=== PATIENT | male | born 1955 | race Caucasian/White ===

== ENCOUNTER → 2017-05-22 | Outpatient (CLI) | payer BC ==
[~2017-05-22] MED LIST: ASPI325T45 PO; ECHINACEA PO; GLUC1TAB22 PO; MISCCAP80 PO; MULT-506 PO; OXYM0.0592 NAE; PRAV40TA2 PO; PRLSR20 PO; VERA1TAB53 PO
--- NOTE | 2017-05-22 09:13 | DIAGNOSTIC IMAGING REPORT ---
L KNEE 4 OR MORE HISTORY: 61 years-old Male LEFT KNEE PAIN acute left knee pain without reported trauma. COMPARISON: Left knee radiographs 05/25/2016 TECHNIQUE: AP view of the bilateral knees with tunnel, sunrise and lateral views of the left knee FINDINGS: Mild medial compartment osteoarthritis is noted on the right. There is progressive degenerative changes of the left knee with mild to moderate joint space narrowing of the medial compartment. Mild patellofemoral osteoarthritis is also noted. There is a small joint effusion. Vascular calcifications are noted. No acute fracture, dislocation or intra-articular loose body identified. IMPRESSION: 1. Mild to moderate osteoarthritis of the medial compartment left knee with mild patellofemoral osteoarthritis. 2. No acute fracture or dislocation. 3. Small joint effusion. 4. Peripheral vascular disease. The above report was generated using voice recognition software. It may contain grammatical, syntax or spelling errors. Electronically signed by: Jose Nevarez M.D. 05/22/2017 9:12 AM Dictated Date/Time: 05/22/2017 9:10 AM
== END | disposition home or self-care (01) ==
LOC: C.RDSM 15:47
PROVIDERS: ATTEND Physician Assistant
DX: M25.562 Pain in left knee (principal)

== ENCOUNTER → 2017-06-15 | Outpatient (CLI) | payer BC ==
--- NOTE | 2017-06-15 14:25 | DIAGNOSTIC IMAGING REPORT ---
LEFT KNEE MRI HISTORY: Left knee pain. COMPARISON STUDY: Left knee 05/22/2017. TECHNIQUE: Multiplanar multisequence MRI of the left knee was performed according to standard department protocol without the use of contrast. FINDINGS: Menisci: Complex tear at the body of the medial meniscus with an oblique tear involving the posterior horn of the medial meniscus. The lateral meniscus appears intact. Ligaments: The anterior and posterior cruciate ligaments are intact. The medial and lateral collateral ligaments are normal in appearance. Extensor mechanism: The quadriceps tendon and patellar ligament are intact. Articular cartilage and bone: No fracture or dislocation. Small subchondral cystic foci within the medial compartment of the knee due to the degenerative change. Approximate 50% cartilage thinning seen within the central weightbearing portion of the medial femoral condyle and medial tibial plateau. Mild cartilage fraying seen within the patella. The lateral compartment appears intact. Joint effusion: Small. Soft tissues: Intact. IMPRESSION: 1. Medial meniscal tear as described above. 2. Moderate osteoarthritis within the medial compartment of the knee and mild osteoarthritis at the patellofemoral compartment. 3. Small joint effusion. Electronically signed by: Kenny Naranjo M.D. 06/15/2017 2:24 PM Dictated Date/Time: 06/15/2017 2:19 PM
== END | disposition home or self-care (01) ==
LOC: C.MRI 13:14
PROVIDERS: ATTEND Physician Assistant
DX: S83.242A Other tear of medial meniscus, current injury, left knee, initial encounter (principal); X58.XXXA Exposure to other specified factors, initial encounter; M17.12 Unilateral primary osteoarthritis, left knee

== ENCOUNTER 2017-11-07 12:30 | Emergency (ER) | payer OTHER ==
[~2017-11-07] VITALS: Ht 182.9 cm; Wt 101.2 kg
[~2017-11-07 12:30] MED LIST changes: -APIX1TAB3 PO; -PSYL48.59 PO; -TAMS0.4C38 PO
[2017-11-07 12:41] VITALS: TEMP 36.7; Ht 182.9 cm; Wt 101.2 kg
--- NOTE | 2017-11-07 13:08 | EMERGENCY ROOM VISIT NOTE ---
History Report prepared by Daisy: Nat Collins Under the Supervision of: Dr. Gage Villa D.O. First contact with patient: 12:52 Chief Complaint: OTHER COMPLAINT Stated Complaint: ULTRASOUND WANTS HIM SEEN, REPORT IS WITH ME History of Present Illness The patient is a 62 year old male who presents to the Emergency Room with complaints of intermittent left leg swelling for several months. He notes the swelling has gone down. The patient was being seen at his orthopedic group today for a torn meniscus in his left knee. They notified his PCP, who refused to see him and advised the patient to come to the ED for evaluation of a possible DVT. He states that the swelling goes down when he rests and is worsened when he walks around. He denies any chest pain or shortness of breath. He denies smoking, though occasionally drinks alcohol. He has a history of HLD, HTN, GERD. He takes a full strength Aspirin every day. Source of History: patient Onset: several months Position: leg (left) Quality: other (swelling) Timing: intermittent Modifying Factors (Worsening): other (walking) Modifying Factors (Relieving): rest Associated Symptoms: No chest pain, No SOB Review of Systems See HPI for pertinent positives & negatives. A total of 10 systems reviewed and were otherwise negative. Past Medical & Surgical Medical Problems: (1) Back pain (2) GERD (gastroesophageal reflux disease) (3) History of torn meniscus of left knee (4) HLD (hyperlipidemia) (5) HTN (hypertension) Family History No pertinent family history Social History Smoking Status: Never Smoker Smokeless Tobacco Use: No Alcohol Use: occasionally Drug Use: none Housing Status: lives with family Occupation Status: employed Current/Historical Medications Scheduled Apixaban (Eliquis), 5 MG PO BID Aspirin (Aspirin), 325 MG PO BIDM Glucosamine Hydrochloride (Glucosamine), 1,500 MG PO QAM Multivitamin (Multivitamin), 1 TAB PO QAM Omeprazole (Prilosec), 20 MG PO QAM Pravastatin Sodium (Pravastatin Sodium), 40 MG PO HS Psyllium (Metamucil), 1 PKT PO DAILY Tamsulosin Hcl (Flomax), 0.4 MG PO DAILY Verapamil Hcl (Verapamil Hcl Er), 180 MG PO HS Allergies Coded Allergies: No Known Allergies (Verified , 11/07/17) Physical Exam Vital Signs Date Time Temp Pulse Resp B/P (MAP) Pulse Ox O2 Delivery O2 Flow Rate FiO2 11/07/17 15:42 74 16 143/91 97 11/07/17 13:20 81 16 155/101 99 Room Air 11/07/17 12:41 36.7 78 18 158/99 98 Room Air Physical Exam GENERAL: Patient is awake, alert, and in no acute distress. Patient is resting comfortably and showing no signs of anxiety EYES: The conjunctivae are clear. The pupils are round and reactive. EARS, NOSE, MOUTH AND THROAT: The nose is without any evidence of any deformity. Mucous membranes are moist tongue is midline NECK: The neck is nontender and supple. RESPIRATORY: Normal respiratory effort is noted there is no evidence of wheezing rhonchi or rales CARDIOVASCULAR: Regular rate and rhythm noted there no murmurs rubs or gallops normal S1 normal S2 GASTROINTESTINAL: The abdomen is soft. Bowel sounds are present in all quadrants. Abdomen is nontender MUSCULOSKELETAL/EXTREMITIES: There is no evidence of gross deformity full range of motion is noted in the hips and shoulders SKIN: Pedal edema on left LE. Skin was warm and dry. Pulses were symmetric. NEUROLOGIC: Patient is awake alert and oriented x3. Medical Decision & Procedures Laboratory Results 11/07/17 13:20 Red Blood Count 4.76, Mean Corpuscular Volume 85.9, Mean Corpuscular Hemoglobin 29.2, Mean Corpuscular Hemoglobin Concent 34.0, Mean Platelet Volume 8.8, Neutrophils (%) (Auto) 61.0, Lymphocytes (%) (Auto) 27.4, Monocytes (%) (Auto) 8.2, Eosinophils (%) (Auto) 2.3, Basophils (%) (Auto) 0.8, Neutrophils # (Auto) 3.93, Lymphocytes # (Auto) 1.77, Monocytes # (Auto) 0.53, Eosinophils # (Auto) 0.15, Basophils # (Auto) 0.05 11/07/17 13:20 Test 11/07/17 13:20 White Blood Count 6.45 K/uL (4.8-10.8) Red Blood Count 4.76 M/uL (4.7-6.1) Hemoglobin 13.9 g/dL (14.0-18.0) Hematocrit 40.9 % (42-52) Mean Corpuscular Volume 85.9 fL (80-100) Mean Corpuscular Hemoglobin 29.2 pg (25-34) Mean Corpuscular Hemoglobin Concent 34.0 g/dl (32-36) Platelet Count 199 K/uL (130-400) Mean Platelet Volume 8.8 fL (7.4-10.4) Neutrophils (%) (Auto) 61.0 % Lymphocytes (%) (Auto) 27.4 % Monocytes (%) (Auto) 8.2 % Eosinophils (%) (Auto) 2.3 % Basophils (%) (Auto) 0.8 % Neutrophils # (Auto) 3.93 K/uL (1.4-6.5) Lymphocytes # (Auto) 1.77 K/uL (1.2-3.4) Monocytes # (Auto) 0.53 K/uL (0.11-0.59) Eosinophils # (Auto) 0.15 K/uL (0-0.5) Basophils # (Auto) 0.05 K/uL (0-0.2) RDW Standard Deviation 41.6 fL (36.4-46.3) RDW Coefficient of Variation 13.2 % (11.5-14.5) Immature Granulocyte % (Auto) 0.3 % Immature Granulocyte # (Auto) 0.02 K/uL (0.00-0.02) Prothrombin Time 10.5 SECONDS (9.0-12.0) Prothromb Time International Ratio 1.0 (0.9-1.1) Activated Partial Thromboplast Time 24.3 SECONDS (21.0-31.0) Partial Thromboplastin Ratio 0.9 Anion Gap 7.0 mmol/L (3-11) Est Creatinine Clear Calc Drug Dose 81.3 ml/min Estimated GFR () 77.8 Estimated GFR (Non- 67.1 BUN/Creatinine Ratio 16.4 (10-20) Calcium Level 9.0 mg/dl (8.5-10.1) Total Bilirubin 0.4 mg/dl (0.2-1) Direct Bilirubin < 0.1 mg/dl (0-0.2) Aspartate Amino Transf (AST/SGOT) 19 U/L (15-37) Alanine Aminotransferase (ALT/SGPT) 32 U/L (12-78) Alkaline Phosphatase 89 U/L (45-117) Total Protein 7.9 gm/dl (6.4-8.2) Albumin 3.8 gm/dl (3.4-5.0) Laboratory results per my review. Medications Administered Medications (Trade) Dose Ordered Sig/Liz Route Start Time Stop Time Status Last Admin Dose Admin Apixaban (Eliquis Tab) 10 mg ONE STAT PO 11/07/17 14:15 11/07/17 14:16 DC 11/07/17 14:32 10 MG ED Course 1254: The patient was evaluated in room B2. A complete history and physical examination were performed. 1302: I reassessed the patient at this time. I informed the patient of the treatment plan. 1415: Ordered Eliquis 10 mg PO 1419: I reassessed the patient at this time. He is feeling better and resting comfortably. I discussed the results and treatment plan with the patient. I answered all pertaining questions that he had. He expressed understanding and verbalized agreement. The patient will be discharged home. Medical Decision Prior records reviewed and summarized above. Triage Nursing notes reviewed. The patient's history was concerning for swelling and pain in the leg. Differential diagnosis: Etiologies such as DVT, musculoskeletal, infection, joint effusion, trauma, lymphedema, idiopathic, CHF, as well as others were entertained.. The patient is a 62-year-old male who has a provoked clot in his left leg. He states that he was sent to the emergency department by his primary care physician for possible anticoagulation. The patient was started on a blood thinner after I discussed his case with the emergency department pharmacist. The patient was encouraged to follow-up with his family doctor this week for reevaluation but return to the emergency department immediately if symptoms change worsen or the need arises. Medication Reconcilliation Current Medication List: was personally reviewed by me Blood Pressure Screening Patient's blood pressure: Elevated blood pressure Blood pressure disposition: Elevated BP felt to be situational Impression Primary Impression: Deep vein thrombosis (DVT) of left lower extremity Scribe Attestation The scribe's documentation has been prepared under my direction and personally reviewed by me in its entirety. I confirm that the note above accurately reflects all work, treatment, procedures, and medical decision making performed by me. Departure Information Dispostion Home / Self-Care Prescriptions Apixaban (ELIQUIS) 5 Mg Tab 5 MG PO BID, #30 TAB Prov: Gage Villa, DO 11/07/17 Referrals No Doctor, Assigned (PCP) Forms HOME CARE DOCUMENTATION FORM, IMPORTANT VISIT INFORMATION, WORK / SCHOOL INSTRUCTIONS Patient Instructions DVT, My [facility] Additional Instructions Call your family doctor in the morning to schedule a follow-up appointment. Continue all medications as prescribed. Return to the emergency department immediately if symptoms change worsen or the need arises. Problem Qualifiers Primary Impression: Deep vein thrombosis (DVT) of left lower extremity Affected thrombotic vein of extremity: unspecified vein of extremity Chronicity: acute Qualified Codes: I82.402 - Acute embolism and thrombosis of unspecified deep veins of left lower extremity
[2017-11-07] MEDS ORDERED: TAMS0.4C38 PO (13:32)
[2017-11-07] MEDS ORDERED: PSYL48.59 PO (13:32)
[2017-11-07 13:38] LABS: BASO % 0.8 %; BASO ABS # 0.05 K/uL (0-0.2); EOS % 2.3 %; EOS ABS # 0.15 K/uL (0-0.5); HEMATOCRIT 40.9 % (42-52); HEMOGLOBIN 13.9 g/dL (14.0-18.0); IG# 0.02 K/uL (0.00-0.02); LYMPH % 27.4 %; LYMPH ABS # 1.77 K/uL (1.2-3.4); MEAN CELL VOLUME 85.9 fL (80-100); MEAN CORPUSCULAR HEMOGLOBIN 29.2 pg (25-34); MEAN PLATELET VOLUME 8.8 fL (7.4-10.4); MONO % 8.2 %; MONO ABS # 0.53 K/uL (0.11-0.59); NEUT ABS # 3.93 K/uL (1.4-6.5); PLATELET COUNT 199 K/uL (130-400); RED CELL DISTRIBUTION WIDTH CV 13.2 % (11.5-14.5); RED CELL DISTRIBUTION WIDTH SD 41.6 fL (36.4-46.3); WHITE BLOOD COUNT 6.45 K/uL (4.8-10.8)
[2017-11-07 13:47] LABS: PTT PATIENT 24.3 SECONDS (21.0-31.0)
[2017-11-07 13:51] LABS: ALBUMIN 3.8 gm/dl (3.4-5.0); ALT/SGPT 32 U/L (12-78); BLOOD UREA NITROGEN 19 mg/dl (7-18); CARBON DIOXIDE 28 mmol/L (21-32); CREATININE 1.16 mg/dl (0.60-1.40); GLUCOSE 96 mg/dl (70-99); POTASSIUM 4.1 mmol/L (3.5-5.1); SODIUM 139 mmol/L (136-145)
[2017-11-07 13:54] LABS: ALKALINE PHOSPHATASE 89 U/L (45-117); AST/SGOT 19 U/L (15-37); TOTAL PROTEIN 7.9 gm/dl (6.4-8.2)
[2017-11-07] MEDS ORDERED: APIXABAN 2.5 MG TAB PO STA (14:15)
[2017-11-07] MEDS ORDERED: APIX1TAB3 PO (14:18)
[2017-11-07 15:42] VITALS: BP 143/91; PULSE 74; O2SAT 97
--- NOTE | 2017-11-07 16:40 | Pharmacy Progress Note ---
ED Pharmacist Progress Note Date of Service: Nov 07, 2017. Received call from [facility] pharmacy regarding the patient's prescriptions for eliquis. Patient had written script for first 30 days- 10 mg BID x 7 days and then 5 mg BID with the coupon for the first [address] Villa also submitted a script electronically for 5 mg BID intended for the next month per discussion earlier with Dr. Villa. He wrote the prescription for 15 days-okay to fill for 30 days per previous discussion after the written prescription filled for this month.
== END 2017-11-07 15:40 | disposition home or self-care (01) ==
LOC: C.EDB 12:31
DX: I82.402 Acute embolism and thrombosis of unspecified deep veins of left lower extremity (principal); E78.5 Hyperlipidemia, unspecified; I10 Essential (primary) hypertension; K21.9 Gastro-esophageal reflux disease without esophagitis; Z79.82 Long term (current) use of aspirin; Z79.899 Other long term (current) drug therapy

== ENCOUNTER → 2017-11-07 | Outpatient (CLI) | payer OTHER ==
[~2017-11-07] MED LIST changes: +APIX1TAB3 PO; +PSYL48.59 PO; +TAMS0.4C38 PO
--- NOTE | 2017-11-07 11:47 | DIAGNOSTIC IMAGING REPORT ---
ULTRASOUND LEFT LOWER EXTREMITY VENOUS CLINICAL HISTORY: Left lower extremity edema. COMPARISON STUDY: No priors. TECHNIQUE: Real-time, grayscale, and color Doppler sonography of the deep veins of the left lower extremity was performed from the inguinal crease to the calf. Compression and augmentation were utilized. FINDINGS: There is nonocclusive and age indeterminant deep venous thrombosis identified within the distal left superficial femoral vein and the left popliteal vein. The common femoral vein as well as the proximal to mid portions of the superficial femoral vein are patent and normally compressible. The greater saphenous vein and the profunda femoris vein at the junction with the common femoral vein are clear. The visualized calf veins are patent. Superficial thrombus is noted within the lesser saphenous vein. IMPRESSION: 1. There is nonocclusive and age indeterminant deep venous thrombosis seen within the distal left superficial femoral vein and within the left popliteal vein. 2. Superficial thrombus is noted in the lesser saphenous vein. Electronically signed by: Hardy Cid M.D. 11/07/2017 11:46 AM Dictated Date/Time: 11/07/2017 11:44 AM
== END | disposition home or self-care (01) ==
LOC: C.ULTR 10:25
PROVIDERS: ATTEND Physician Assistant
DX: M17.12 Unilateral primary osteoarthritis, left knee (principal); R80.0 Isolated proteinuria

== ENCOUNTER → 2017-11-16 | Outpatient (CLI) | payer OTHER ==
[~2017-11-16] MED LIST changes: +APIX1TAB3 PO; -ECHINACEA PO; -MISCCAP80 PO; -OXYM0.0592 NAE; +PSYL48.59 PO; +TAMS0.4C38 PO
--- NOTE | 2017-11-17 06:13 | PAP/PSG TECHNICIAN REPORT ---
[facility] Back Roller Polysomnogram Report Study name: None Report date: 11/17/2017 Study date: 11/16/2017 Referring Physician: DR. LEE DEY Name: TRESSA CONTI Interpreting Physician: Bernardo Sherman D.O. Date of : 1955 Back Roller: Padma Marrufo [facility]. Sex: Male Age: 62 StudyType: PSG PAP Weight: 221 lbs Height: 62 years, Height 6' 0" BMI: 29.97 Medications: Omeprazole, Multi-Vitamin, Pravastatin, Verapamil, ASA, Glucosamine Patient History 62 yr. old male here for a new titration sleep study. Patient had a HST on 10/17/2017 and had an RDI of 27.5. ESS 5 Parameters Monitored NPSG: E1-M2, E2-M1, Fp1-M2, Fp2-M1, F3-M2, F4-M2, F4-M1, C3-M2, C4-M2, C4-M1, O1-M2, O2-M2, O2-M1, T3-M2, T4-M1, P3-M2, P4-M1, CHIN1, CHIN2, HR, EKG, Legs, PFLOW, SNOR, FLOW, CFLOW, Tidal Volume, THOR, ABDO, SpO2, PLTH, CPRESS, ETCO2 Wave, ETCO2, pH Sleep Architecture Sleep Stages Time at Lights Off 9:27:46 PM STAGES Time (min.) TST (%) Time at Lights On 5:32:16 AM Wake 32.0 -- Total Recording Time (TRT) 484.50 min. N1 38.5 9 Total Sleep Period (TSP) 475.0 min. N2 242.0 53 Total Sleep Time (TST) 452.5min. N3 57.5 13 Awake Time 32.0 min. REM 114.5 25 Wake after Sleep Onset 27.5 min. Sleep Efficiency (SE) 93 % Sleep Onset Latency (KVNG) 4.5 min. Number of Stage 1 Shifts None Awakenings 14 Stage Changes 74 Number of REM periods 11 REM 114.5 25 REM Latency 142.0 min. NREM 338.0 75 Body Position Analysis Supine Right Left Side Prone Vertical Total Sleep Time (min.) 258.8 112.0 99.0 211.00 0.0 0.0 Total Sleep Time (%) 53% 25% 22% 47 0% N/A% Total Sleep Time REM (min.) 67.0 24.5 23.0 None 0.0 0.0 Total Sleep Time NREM (min.) 174.5 87.5 76.0 None 0.0 0.0 Intermittent Wake (min.) 17.3 13.0 1.7 None 0.0 0.0 Total Sleep Period (%) 52% None None None None None Arousals Myoclonus (PLM) * Events Count Index Events Count Index Spontaneous 9 1 Events Awake (PLMW) 21 39.4 Respiratory 0 0.0 Events Asleep w/ Arousal (PLMA) 14 1.9 PLM 14 2 Events Asleep w/o Arousal (PLMS) 68 9.0 Snoring 2 0 Total Asleep 82 10.9 Total 25 3 Total 103 13 Respiratory Analysis * CA OA MA CH H RERA Total Count 1 0 0 0 11 0 12 Index 0.1 0.0 0.0 0 1.5 0 1.6 Mean Duration 12.9 0.0 0.0 0.00 30.2 0.0 28.7 Longest Duration 12.9 0.0 0.0 0.00 0.0 0.0 119.2 Respiratory Event Summary Total Supine ~Supine Right Left Prone REM NREM Apneas Count 1 1 0 0 0 N/A 1 0 Index 0.1 0 0 0.0 0.0 N/A 1 0 Hypopneas (4% Desat) Count 11 9 2 0 2 N/A 1 10 Index 1.5 2.2 1 0.0 1.2 N/A 0.5 1.8 Apneas & All Hypopneas Count 12 10 2 0 2 N/A 2 10 Index 1.6 2 1 0 1 N/A 1.0 1.8 Respiratory Events (Executive Marketing Assistant+All Hyp+RERA) Count 12 10 2 0 2 N/A 2 10 Index 1.6 2 1 0.0 1.2 N/A 1.0 1.8 Respiratory Related Arousal Count 0 10 0 0 0 N/A 0 0 Index 0.0 0 0 0 0 N/A 0 0 Snoring Analysis Supine Right Left Prone REM NREM Total Snore duration 1.6 min Snores count 46 1 7 N/A 12 42 54 Snore mean duration 1.7 Sec Snores index 11 1 4 N/A 6.3 7.5 7.2 TST with snoring (%) 0.3% Desaturation Event Summary: Minimum %SpO2 Event Count Mean/Min/Max Duration(sec.) Desaturation Index % Time In Bed > 90 11 30.2 / 16.3 / 60.0 1.4 99.2 86 - 90 1 7.5 / 7.5 / 7.5 14.6 0.8 81 - 85 0 N/A 0.0 0.0 76 - 80 0 N/A 0.0 0.0 71 - 75 0 N/A 0.0 0.0 66 - 70 0 N/A 0.0 0.0 61 - 65 0 N/A 0.0 0.0 56 - 60 0 N/A 0.0 0.0 51 - 55 0 N/A 0.0 0.0 < 50 0 N/A 0.0 0.0 Total REM NREM Awake <50% 0.0 min. 0.0 min. 0.0 min. 0.0 min. 51 - 60% 0.0 min. 0.0 min. 0.0 min. 0.0 min. 61 - 70% 0.0 min. 0.0 min. 0.0 min. 0.0 min. 71 - 80% 0.0 min. 0.0 min. 0.0 min. 0.0 min. 81 - 90% 4.1 min. 0.4 min. 3.2 min. 0.5 min. 91 - 100% 479.0 min. 114.1 min. 334.8 min. 30.1 min. Average 94 94 94 95 Minimum SpO2 89 90 89 90 Desaturation Event Index 1.5 1.6 1.6 0.0 # Desat. Events below 89% N/A N/A N/A N/A Time(%) with Saturation below 89% 0.0 0.0 0.0 0.0 Time(min.) with Saturation below 89% 0.0 0.0 0.0 0.0 Time (mins) REM (mins) NREM (mins) % of TST SpO2 Below 90% 4 1 N3 0.1 SpO2 Below 88% 0 0 0 0 Heart Rate Analysis Min (bpm) Max (bpm) Average (bpm) Awake 52 95 67 NREM 49 95 59 REM 50 76 59 Overall 49 95 59 Supplemental O2 Values Minimum O2 level: None Value Start Time End Time Back Roller Comments Mr. Conti slept in the right, left, and supine positions. No cardiac arrhythmia. PLMs noted. No bruxism noted. CPAP was initiated at +4 CMH2O room air and up-titrated to a level of +5 CMH2O Cflex, which nearly eliminated all respiratory events and snoring. A ResMed mirage FX nasal mask , was used during titration. Mr. Conti did not wake to use the restroom during the night. Mr. Conti stated, he felt starved for air on his R side, but on his back he slept great. The final report will be interpreted and signed by a sleep physician. The completed physician report will then be placed in the patient medical record. Therapy Event: Therapy (cm H20) 4 5 Total Time at Pressure (min.) 288.2 196.3 TST at Pressure (min.) 263.2 189.3 # Periods 1 1 Sleep Onset (min.) 4.5 0.0 REM Onset (min.) 146.5 59.3 Sleep Efficiency % 91 96 Wakefulness (%) 8.7 3.6 Wakefulness (min.) 25.0 7.0 NREM 1 (%) 9.7 5.3 NREM 1 (min.) 28.0 10.5 NREM 2 (%) 47.9 52.9 NREM 2 (min.) 138.2 103.8 NREM 3 (%) 17.2 4.1 NREM 3 (min.) 49.5 8.0 REM (%) 16.5 34.1 REM (min.) 47.5 67.0 # Arousals 14 11 Arousal Index 3.2 3.5 # Snore 35 19 Snore Index 8.0 6.0 AHI 2.3 0.6 AHI Supine 9.2 0.6 AHI Non-Supine 0.6 N/A NREM AHI 2.5 0.5 REM AHI 1.3 0.9 RDI 2.3 0.6 # Obstructive 0 0 # Central Ap 0 1 # Mixed 0 0 # Hypopneas 10 1 RERAS 0 0 Total Respiratory Events 10 2 Time Below SpO2 89.00% (min.) 0.0 0.0 Mean NREM SpO2 (%) 94 93 Mean REM SpO2 (%) 95 94 Mean Sleep SpO2 (%) 94 94 Min NREM SpO2 (%) 89 89 Min REM SpO2 (%) 91 90 Position Supine (min.) 52.2 189.3 Position Non-supine (min.) 211.0 0.0 LM Index Sleep 13.7 7.0 LM Index NREM 14.5 6.4 LM Index REM 10.1 8.1 Mean Heart Rate (bpm) 60 57 Min Heart Rate (bpm) 50 49
--- NOTE | 2017-11-18 12:13 | POLYSOMNOGRAPH REPORT ---
CLINICAL DATA: The patient is a 62-year-old male who has symptoms including snoring, observed apneas, and fatigue. His [place] sleepiness scale score is 5. His BMI is 29.97. He previously had a home sleep study done 10/17/2017 which showed an BLAISE of 27.5. This reflects moderate sleep apnea. He is referred to the sleep disorder center by Dr. Nichols for a CPAP titration study. SLEEP ARCHITECTURE: The total sleep period was 475 minutes. The total sleep time was 452.5 minutes. The sleep efficiency was normal at 93%. The sleep latency was 4.5 minutes. Wake after sleep onset was 27.5 minutes. The REM latency was 142 minutes which was prolonged. There were 4 REM periods during the night. Sleep consisted of stage N1 9%, stage N2 53%, stage N3 13%, and stage REM 25%. AROUSAL DATA: The patient had a total of 25 arousals including 9 spontaneous arousals, 0 respiratory arousals, 14 PLM arousals, and 2 snoring arousals. The arousal index was 3. PERIODIC LIMB MOVEMENT DATA: The patient had a total of 82 periodic limb movements of sleep for a PLM index of 10.9. There were 14 arousals, associated with sleep for a PLM arousal index of 1.9. ECHOCARDIOGRAM: The underlying cardiac rhythm was normal sinus. The cardiac rates ranged from 50-76 beats per minute. The average heart rate was 59 beats per minute. No cardiac arrhythmias were noted. RESPIRATORY DATA: The patient's respiratory events were treated with nasal CPAP, which was titrated to a final pressure of 5 cm. He had a total of 12 respiratory events including 1 central apnea and 11 hypopneas. Hypopneas were scored according to the 4% desaturation rule. The longest apnea was 12.9 seconds. The mean duration of the hypopneas was 30.2 seconds. The apnea hypopnea index was 1.6. This would reflect resolution of sleep-disordered breathing. OXIMETRY DATA: The average saturation for the night was 94%. The minimum saturation was 89%. MANAGER CAMP COMMENTS: The patient slept in the right, left, and supine positions. No cardiac arrhythmias noted. PLMs noted. No bruxism noted. CPAP was initiated at 4 cm and up titrated to a level of 5 cm. This nearly eliminated all respiratory events and snoring. A ResMed Mirage FX nasal mask was used during titration. The patient did not awaken to use the restroom during the night. He stated that he felt starved for air on his right side but on his back he slept great. IMPRESSION: Moderate obstructive sleep apnea -- resolved with nasal CPAP at 5 cm. RECOMMENDATIONS: 1. It is advised that the patient be started on nasal CPAP at 5 cm. 2. He did well with his mask which was a ResMed Mirage FX nasal mask. This was given to him by the staff after the study and can be utilized. 3. Weight loss is advised in light of the elevation of body mass index at 29.97. 4. The patient would need followup between day #31 and day #90 after receiving his CPAP.
== END | disposition home or self-care (01) ==
LOC: C.NEUR 21:00
PROVIDERS: ATTEND Internal Medicine
DX: G47.30 Sleep apnea, unspecified (principal)